=== PATIENT | female | born 1990 | race Caucasian/White ===

== ENCOUNTER 2020-04-29 14:40 | Emergency (ER) | payer OTHER ==
[~2020-04-29] VITALS: Ht 160 cm; Wt 49.4 kg
[2020-04-29 15:01] VITALS: Ht 160 cm; Wt 49.4 kg
[2020-04-29 19:14] VITALS: BP 121/72
[2020-04-29 19:33] LABS: UA SPECIFIC GRAVITY >=1.030 (1.005-1.035); microscopic required? YES; urine erythrocyte TRACE (NEGATIVE)
== END 2020-04-29 18:40 | disposition home or self-care (01) ==
LOC: ED 14:40
PROVIDERS: Emergency Medicine
DX: E28.2 Polycystic ovarian syndrome (principal)